=== PATIENT | female | born 1995 | race Caucasian/White ===

== ENCOUNTER 2018-09-05 15:20 | Emergency (ER) | payer MEDICARE, MEDICAID ==
[2018-09-05] MEDS ORDERED: KETOROLAC TROMETHAMINE INJ/PF 30 MG/1 ML SDV IV ONE (16:00)
[2018-09-05] MEDS ORDERED: NORMAL SALINE 1000 ML 1,000 ML IV ONE ×2 (16:00→18:25)
[2018-09-05] MEDS ORDERED: ONDANSETRON HCL INJ/PF 4 MG/2 ML SDV IV ONE (16:00)
--- NOTE | 2018-09-05 16:00 | ER Document Report ---
ED Medical Screen (RME) - General Chief Complaint: Abdominal Pain Stated Complaint: ABDOMINAL PAIN Time Seen by Provider: 09/05/18 15:55 TRAVEL OUTSIDE OF THE [place] IN LAST 30 DAYS: No - HPI Notes: 09/05/18 15:59 Patient is a 23-year-old female that presents to the emergency department for chief complaint of left flank and lower abdominal pain. Patient started having left flank pain at 3 AM. Around 9 AM the pain transition to bilateral lower back and bilateral lower frontal abdominal pain. She reports associated nausea and vomiting. She took a dose of Tylenol and ibuprofen at 8 AM with some improvement of symptoms. She has a history of kidney stones and states this feels similar but the pain is more severe. She does have a urologist but does not remember their name.. ROS: GENERAL: Denies fever of chills CV: Denies chest pain PHYSICAL EXAMINATION: GENERAL: Well-appearing, well-nourished and in no acute distress. HEAD: Atraumatic, normocephalic. EYES: Pupils equal round extraocular movements intact, conjunctiva are normal. ENT: Nares patent NECK: Normal range of motion LUNGS: No respiratory distress Musculoskeletal: Normal range of motion NEUROLOGICAL: Normal speech, normal gait. PSYCH: Normal mood, normal affect. MDM: Patient seen and examined for rapid initial assessment. Vital signs reviewed. A comprehensive ED assessment and evaluation of the patient, analysis of test results and completion of the medical decision making process will be conducted by additional ED providers. - Related Data Allergies/Adverse Reactions: No Known Allergies Allergy (Unverified 09/05/18 15:44) Past Medical History - Social History Frequency of alcohol use: None Drug Abuse: None Pulmonary Medical History: Reports: Hx Asthma Renal/ Medical History: Reports: Hx Kidney Stones. Denies: Hx Peritoneal Dialysis Psychiatric Medical History: Reports: Hx Bipolar Disorder - depression, Hx Depression, Hx Schizophrenia Physical Exam - Vital signs Vitals: Temp Pulse Resp BP Pulse Ox 99.7 F 111 H 16 132/90 H 98 09/05/18 15:30 09/05/18 15:30 09/05/18 15:30 09/05/18 15:30 09/05/18 15:30 Course - Vital Signs Vital signs: Temp Pulse Resp BP Pulse Ox 99.7 F 111 H 16 132/90 H 98 09/05/18 15:30 09/05/18 15:30 09/05/18 15:30 09/05/18 15:30 09/05/18 15:30
[2018-09-05 16:38] LABS: HEMATOCRIT 42.4 % (36.0-47.0); HEMOGLOBIN 14.5 g/dL (12.0-15.5); MEAN CORPUSCULAR HEMOGLOBIN 26.5 pg (27.0-33.4); MEAN CORPUSCULAR HGB CONC 34.1 g/dL (32.0-36.0); MEAN CORPUSCULAR VOLUME 78 fl (80-97); PLATELET COUNT 327 10^3/uL (150-450); RED BLOOD COUNT 5.47 10^6/uL (3.72-5.28); RED CELL DISTRIBUTION WIDTH 14.9 % (11.5-14.0); WHITE BLOOD COUNT 18.3 10^3/uL (4.0-10.5)
[2018-09-05 16:41] LABS: APPEARANCE,URINE CLOUDY; BILIRUBIN,URINE NEGATIVE (NEGATIVE); COLOR,URINE YELLOW; GLUCOSE, URINE NEGATIVE (NEGATIVE); KETONES,URINE NEGATIVE (NEGATIVE); LEUKOCYTE ESTERASE,URINE LARGE (NEGATIVE); NITRITE,URINE NEGATIVE (NEGATIVE); PROTEIN,URINE 30 mg/dL (NEGATIVE); URINE SPECIFIC GRAVITY 1.028; UROBILINOGEN,URINE NEGATIVE mg/dL (<2.0)
[2018-09-05 16:53] LABS: ANION GAP 15 (5-19); BLOOD UREA NITROGEN 12 mg/dL (7-20); CALCIUM 9.6 mg/dL (8.4-10.2); CARBON DIOXIDE 23 mmol/L (22-30); CHLORIDE 104 mmol/L (98-107); GLUCOSE 122 mg/dL (75-110); POTASSIUM 3.9 mmol/L (3.6-5.0); SODIUM 141.7 mmol/L (137-145)
[2018-09-05 17:10] LABS: ABSOLUTE LYMPHOCYTES# (MANUAL) 0.5 10^3/uL (0.5-4.7); ABSOLUTE MONOCYTES # (MANUAL) 0.4 10^3/uL (0.1-1.4); ABSOLUTE NEUTROPHILS# (MANUAL) 17.4 10^3/uL (1.7-8.2); BASOPHILS % (MANUAL) 0 % (0-2); EOSINOPHILS % (MANUAL) 0 % (0-6); LYMPHOCYTES % (MANUAL) 3 % (13-45); MONOCYTES % (MANUAL) 2 % (3-13); PLATELET COMMENT ADEQUATE; RBC MORPHOLOGY COMMENT NORMO-CYTIC/CHROMIC; SEGMENTED NEUTROPHILS % (MAN) 95 % (42-78); TOTAL CELLS COUNTED 100
[2018-09-05] MEDS ORDERED: CEFTRIAXONE INJ 1000 MG VIAL IV ONE (17:33)
--- NOTE | 2018-09-05 17:58 | RADIOLOGY REPORT (SQ) ---
EXAM DESCRIPTION: CT ABD/PELVIS NO ORAL OR IV COMPLETED DATE/TIME: 09/05/2018 5:27 pm REASON FOR STUDY: left flank pain COMPARISON: None. TECHNIQUE: CT scan of the abdomen and pelvis performed without intravenous or oral contrast. Images reviewed with lung, soft tissue, and bone windows. Reconstructed coronal and sagittal MPR images revi ewed. All images stored on PACS. All CT scanners at this facility use dose modulation, iterative reconstruction, and/or weight based d osing when appropriate to reduce radiation dose to as low as reasonably achievable (ALARA). [facility]: Dose Right [facility]: CareDose [facility]: Dose Right [facility]: Teradose 4D [facility]: Smart Technologies RADIATION DOSE: CT Rad equipment meets quality standard of care and radiation dose reduction techniq ues were employed. CTDIvol: 19.0 mGy. DLP: 1108 mGy-cm.mGy. LIMITATIONS: None. FINDINGS: LOWER CHEST: Cannot exclude a 5 cm fat density lesion in the right breast on image 1. NON-CONTRASTED LIVER, SPLEEN, ADRENALS: Evaluation limited by lack of IV contrast. No identified sign ificant masses. PANCREAS: No masses. No peripancreatic inflammatory changes. GALLBLADDER: No identified stones by CT criteria. No inflammatory changes to suggest cholecystitis. RIGHT KIDNEY AND URETER: No suspicious masses. Assessment limited by lack of IV contrast. Small non obstructing intrarenal calculus. No hydronephrosis or hydroureter. LEFT KIDNEY AND URETER: No suspicious masses. Assessment limited by lack of IV contrast. 4 cm calcu nitin at the UPJ. Mild hydronephrosis. AORTA AND RETROPERITONEUM: No aneurysm. No retroperitoneal masses or adenopathy. BOWEL AND PERITONEAL CAVITY: No obvious masses or inflammatory changes. No free fluid. APPENDIX: Normal. PELVIS, BLADDER, AND ABDOMINAL WALL:No abnormal masses. No free fluid. Bladder normal. BONES: No significant findings. OTHER: No other significant finding. IMPRESSION: 1. 4 mm stone at the left UPJ with mild hydronephrosis. 2. Cannot exclude 5 cm hamartoma or lipoma in the right breast. COMMENT: Quality ID # [id number]: Final reports with documentation of one or more dose reduction techniques (e.g., Automated exposure control, adjustment of the mA and/or kV according to patient size, use of iterative reconstruction technique) TECHNICAL DOCUMENTATION: JOB ID: [id number] [employer]- All Rights Reserved Reading location - IP/workstation name: [email or web address]
[2018-09-05] MEDS ORDERED: MORPHINE SULFATE 10 MG/ML INJ IV ONE ×2 (18:01→22:15)
[2018-09-05] MEDS ORDERED: TAMSULOSIN HCL 0.4 MG CAP.SR.24H PO ONE (18:08)
--- NOTE | 2018-09-05 18:10 | ER Document Report ---
ED General - General Chief Complaint: Abdominal Pain Stated Complaint: ABDOMINAL PAIN Time Seen by Provider: 09/05/18 15:55 Mode of Arrival: Ambulatory Information source: Patient, Relative, [facility] Records Notes: 23-year-old female with asthma, schizophrenia, bipolar disorder, previous kidney stones presents with complaint of left-sided flank pain that started 15 hours prior to arrival. Patient describes the pain as sharp, constant with radiation to her left lower quadrant. She has had associated nausea, vomiting. Patient has also had subjective fever with chills and sweats. Patient's last stone was approximately 2 years ago. She is not currently under urology care. TRAVEL OUTSIDE OF THE [place]. IN LAST 30 DAYS: No - HPI Onset: This morning Onset/Duration: Sudden, Constant Quality of pain: Stabbing Severity: Moderate Associated symptoms: Chills, Nausea, Vomiting Exacerbated by: Movement, Walking Relieved by: Denies Similar symptoms previously: Yes Recently seen / treated by doctor: No - Related Data Allergies/Adverse Reactions: No Known Allergies Allergy (Unverified 09/05/18 15:44) Past Medical History - General Information source: Patient, [facility] Records - Social History Smoking Status: Former Smoker Frequency of alcohol use: None Drug Abuse: None Lives with: Family Family History: Reviewed & Not Pertinent Patient has suicidal ideation: No Patient has homicidal ideation: No Pulmonary Medical History: Reports: Hx Asthma Renal/ Medical History: Reports: Hx Kidney Stones. Denies: Hx Peritoneal Dialysis Psychiatric Medical History: Reports: Hx Bipolar Disorder - depression, Hx Depression, Hx Schizophrenia Review of Systems - Review of Systems Notes: REVIEW OF SYSTEMS: CONSTITUTIONAL : Denies fever, Denies recent illness. Denies weight loss, recent hospitalizations. EENT: Denies visual changes, eye pain. Denies sore throat, oral lesions, difficulty swallowing. CARDIOVASCULAR: Denies chest pain. Denies palpitations. Denies lower extremity edema. RESPIRATORY: Denies cough. Denies shortness of breath, wheezing. GASTROINTESTINAL: Denies abdominal pain or distention. Denies diarrhea. Denies blood in vomitus, stools, or per rectum. Denies black, tarry stools. Denies constipation. GENITOURINARY: Denies difficulty urinating, painful urination, frequency, blood in urine, or vaginal discharge. MUSCULOSKELETAL: Denies neck pain or stiffness. Denies joint pain or swelling. SKIN: Denies rash, lesions or sores. HEMATOLOGIC : Denies easy bruising or bleeding. LYMPHATIC: Denies swollen glands. NEUROLOGICAL: Denies confusion or altered mental status. Denies loss of consciousness. Denies dizziness or lightheadedness. Denies headache. Denies weakness or paralysis. Denies problems difficulty with ambulation, slurred speech. Denies sensory loss, numbness, or tingling. Denies seizures. PSYCHIATRIC: Denies anxiety or stress. Denies depression, suicidal ideation, or homicidal ideation. Denies visual or auditory hallucinations. Physical Exam - Vital signs Vitals: Temp Pulse Resp BP Pulse Ox 99.7 F 111 H 16 132/90 H 98 09/05/18 15:30 09/05/18 15:30 09/05/18 15:30 09/05/18 15:30 09/05/18 15:30 Interpretation: Hypertensive, Tachycardic - Notes Notes: PHYSICAL EXAMINATION: GENERAL: Well-appearing, well-nourished and in no acute distress. HEAD: Atraumatic, normocephalic. EYES: Pupils equal round and reactive to light, extraocular movements intact, conjunctiva are normal. ENT: Nares patent, oropharynx clear without exudates. Moist mucous membranes. NECK: Normal range of motion, supple without lymphadenopathy LUNGS: Breath sounds clear to auscultation bilaterally and equal. No wheezes rales or rhonchi. HEART: Tachycardic, regular rhythm no murmurs ABDOMEN: Soft, nontender, nondistended abdomen. No guarding, no rebound. No masses appreciated. Left CVA tenderness Female : deferred Musculoskeletal: Normal range of motion, no pitting or edema. No cyanosis. NEUROLOGICAL: Cranial nerves grossly intact. Normal speech, normal gait. Normal sensory, motor exams PSYCH: Normal mood, normal affect. SKIN: Warm, Dry, normal turgor, no rashes or lesions noted. Course - Re-evaluation Re-evalutation: Laboratory 09/05/18 09/05/18 09/05/18 16:13 16:13 16:13 WBC 18.3 H RBC 5.47 H Hgb 14.5 Hct 42.4 MCV 78 L MCH 26.5 L MCHC 34.1 RDW 14.9 H Plt Count 327 Total Counted 100 Seg Neutrophils % Not Reportable Seg Neuts % (Manual) 95 H Lymphocytes % Not Reportable Lymphocytes % (Manual) 3 L Monocytes % Not Reportable Monocytes % (Manual) 2 L Eosinophils % Not Reportable Eosinophils % (Manual) 0 Basophils % Not Reportable Basophils % (Manual) 0 Absolute Neutrophils Not Reportable Abs Neuts (Manual) 17.4 H Absolute Lymphocytes Not Reportable Abs Lymphs (Manual) 0.5 Absolute Monocytes Not Reportable Abs Monocytes (Manual) 0.4 Absolute Eosinophils Not Reportable Absolute Eos (Manual) 0.0 Absolute Basophils Not Reportable Abs Basophils (Manual) 0.0 Platelet Comment ADEQUATE RBC Morph Comment NORMO-CYTIC/CHROMIC Sodium 141.7 Potassium 3.9 Chloride 104 Carbon Dioxide 23 Anion Gap 15 BUN 12 Creatinine 1.07 Est GFR ( Amer) > 60 Est GFR (Non-Af Amer) > 60 Glucose 122 H Calcium 9.6 Urine Color YELLOW Urine Appearance CLOUDY Urine pH 5.0 Ur Specific [place] 1.028 Urine Protein 30 H Urine Glucose (UA) NEGATIVE Urine Ketones NEGATIVE Urine Blood NEGATIVE Urine Nitrite NEGATIVE Urine Bilirubin NEGATIVE Urine Urobilinogen NEGATIVE Ur Leukocyte Esterase LARGE H Urine WBC (Auto) 82 Urine RBC (Auto) 9 Urine Bacteria (Auto) TRACE Squamous Epi Cells Auto 11 Urine Mucus (Auto) FEW Urine Ascorbic Acid NEGATIVE Urine HCG, Qual NEGATIVE Abdomen/Pelvis CT 09/05/18 15:59 IMPRESSION: 1. 4 mm stone at the left UPJ with mild hydronephrosis. 2. Cannot exclude 5 cm hamartoma or lipoma in the right breast. 09/05/18 18:[address] Mendoza's ETHAN Denis who has accepted the patient for transfer to [facility] for an infected stone. 09/05/18 18:49 23-year-old female presents with complaint of left flank pain for approximately 15 hours with associated nausea, vomiting. Upon arrival patient is tachycardic but afebrile. She does not appear toxic or dehydrated but she is in significant pain with palpation to the abdomen left flank. CBC shows a leukocytosis of 18. Urinalysis shows large leuk esterase and 82 WBCs. CMP without significant electrolyte abnormalities. CT was obtained and showed a 4 mm stone at the left UPJ with mild hydronephrosis. Because of the patient's vomiting, leukocytosis, urinary tract infection she will be transferred to [facility] where urology is available. Both patient and mother are agreeable with transfer. Both were told that estimated time of transfer will be approximately 9 PM but that we cannot be sure. As needed medications for pain and nausea have been ordered. - Vital Signs Vital signs: Temp Pulse Resp BP Pulse Ox 99.7 F 111 H 16 132/90 H 98 09/05/18 15:30 09/05/18 15:30 09/05/18 15:30 09/05/18 15:30 09/05/18 15:30 - Laboratory Result Diagrams: 09/05/18 16:13 09/05/18 16:13 Laboratory results interpreted by me: 09/05/18 09/05/18 09/05/18 16:13 16:13 16:13 WBC 18.3 H RBC 5.47 H MCV 78 L MCH 26.5 L RDW 14.9 H Seg Neuts % (Manual) 95 H Lymphocytes % (Manual) 3 L Monocytes % (Manual) 2 L Abs Neuts (Manual) 17.4 H Glucose 122 H Urine Protein 30 H Ur Leukocyte Esterase LARGE H - Diagnostic Test Radiology reviewed: Image reviewed, Reports reviewed Discharge - Discharge Clinical Impression: Elevated blood pressure reading, Tachycardia Urolithiasis Qualifiers: Urinary calculus location: upper urinary tract Qualified Code(s): N20.9 - Urinary calculus, unspecified UTI (urinary tract infection) Qualifiers: Urinary tract infection type: site unspecified Hematuria presence: without hematuria Qualified Code(s): N39.0 - Urinary tract infection, site not specified Hydronephrosis Qualifiers: Hydronephrosis type: with renal calculous obstruction Qualified Code(s): N13.2 - Hydronephrosis with renal and ureteral calculous obstruction Leukocytosis Qualifiers: Leukocytosis type: unspecified Qualified Code(s): D72.829 - Elevated white blood cell count, unspecified Nausea & vomiting Qualifiers: Vomiting type: unspecified Vomiting Intractability: non-intractable Qualified Code(s): R11.2 - Nausea with vomiting, unspecified Condition: Good Disposition: [facility] Instructions: Urinary Tract Infection ([facility])
[2018-09-05] MEDS ORDERED: MORPHINE SULFATE 10 MG/ML INJ IV PRN (18:25)
[2018-09-05] MEDS: ONDANSETRON HCL INJ/PF 4 MG/2 ML SDV IV PRN ×2 (18:37→22:22)
[2018-09-05] MEDS ORDERED: ONDANSETRON 4 MG TAB.RAPDIS PO ONE (20:02)
--- NOTE | 2018-09-05 22:36 | ER Document Report ---
Doctor's Note Notes: 09/05/18 22:16 Patient signed out to me by Dr. Figueroa. EMS is ready for transport and patient is rechecked. States she is feeling better and only complains of back pain. Administered 2 mg of Morphine IV. Patient is stable for transport.
[2018-09-05 22:40] VITALS: BP 112/67
== END 2018-09-05 22:40 | disposition short-term general hospital (02) ==
LOC: ER 15:20
DX: N13.6 Pyonephrosis (principal); J45.909 Unspecified asthma, uncomplicated; R11.2 Nausea with vomiting, unspecified; R68.83 Chills (without fever); R00.0 Tachycardia, unspecified; D72.829 Elevated white blood cell count, unspecified; Z87.891 Personal history of nicotine dependence
CPT/HCPCS: 96376; 99284; 96361; 96375; 96365; 36415; 87086; 85025; 81025; 87088; 80048; 81001; 87186; 74176; J1885; J2270; A9270; J0696; J2405; J7030

== ENCOUNTER 2020-04-19 13:15 | Emergency (ER) | payer MEDICARE, MEDICAID ==
--- NOTE | 2020-04-19 15:11 | ER Document Report ---
ED General - General Chief Complaint: Signs of Kruger Stated Complaint: SHORTNESS OF BREATH Time Seen by Provider: 04/19/20 15:07 Notes: 24-year-old woman presents to the emergency department with a complaint of cough, congestion, body aches and pains. States that she feels have coronavirus. She complains of episodic headache and also weakness. She denies a history of known exposure to COVID-19. TRAVEL OUTSIDE OF THE [place] IN LAST 30 DAYS: No - Related Data Allergies/Adverse Reactions: No Known Allergies Allergy (Verified 05/20/19 13:36) Past Medical History - Social History Smoking Status: Current Every Day Smoker Chew tobacco use (# tins/day): No Frequency of alcohol use: Social Drug Abuse: None Family History: Reviewed & Not Pertinent Patient has homicidal ideation: No Pulmonary Medical History: Reports: Hx Asthma Renal/ Medical History: Reports: Hx Kidney Stones. Denies: Hx Peritoneal Dialysis Psychiatric Medical History: Reports: Hx Bipolar Disorder - depression, Hx Depression, Hx Schizophrenia Review of Systems - Review of Systems Notes: Constitutional: +fever. HENT: Negative for sore throat. Eyes: Negative for visual changes. Cardiovascular: Negative for chest pain. Respiratory:+ Cough Gastrointestinal: Negative for abdominal pain, vomiting or diarrhea. Genitourinary: Negative for dysuria. Musculoskeletal: + Myalgia Skin: Negative for rash. Neurological: Negative for headaches, weakness or numbness. 10 point ROS negative except as marked above and in HPI. Physical Exam - Vital signs Vitals: Temp Pulse Resp BP Pulse Ox 99.2 F 92 21 H 149/88 H 97 04/19/20 13:54 04/19/20 13:54 04/19/20 13:54 04/19/20 13:54 04/19/20 13:54 - Notes Notes: PHYSICAL EXAMINATION: Physical Exam: General: Well-nourished well-developed 24-year-old female in no acute distress HEENT: NC/AT, pupils equal round and reactive to light, MM moist,nares clear, oropharynx nasal congestion, airway patent Neck: supple, no adenopathy, no masses. Good range of motion Lungs: Bilateral clear lungs with good air movement CVS: Normal S1, S2, no murmur gallop or rub Abdomen: Soft, active, nontender, no masses, no hepatosplenomegaly Ext: No edema, clubbing or cyanosis. Neuro: Alert and responsive, moving all 4 extremities on command, cranial nerves intact, no focal findings Skin: Intact no open lesions, no rash PSYCH: Normal mood, normal affect. Course - Re-evaluation Re-evalutation: 04/19/20 19:32 Patient presents with low-grade temperature, cough and body aches. Chest x-ray and labs are noted to be negative. Given her presentation, coronavirus screening test is being performed. I have instructed the patient that she will need to self isolate until she received a report of the test results. The patient acknowledges that she has been tested for COVID-19, and will self isolate at home until she receives results. She is instructed to avoid anti- inflammatory medications. May use Tylenol for fever, aches and pains. She is also instructed to return to the hospital if her symptoms are worsening or development of shortness of breath. - Vital Signs Vital signs: Temp Pulse Resp BP Pulse Ox 98.7 F 94 16 143/99 H 96 04/19/20 17:54 04/19/20 17:54 04/19/20 17:54 04/19/20 17:54 04/19/20 17:54 - Laboratory Result Diagrams: 04/19/20 15:56 04/19/20 15:56 Laboratory results interpreted by me: 04/19/20 04/19/20 15:56 15:56 RBC 5.34 H RDW 15.3 H Eos % (Auto) 14.0 H Absolute Eos (auto) 1.0 H Urine Protein 30 H I have reviewed laboratory data and used this information for the treatment decisions regarding the patient. - Diagnostic Test Radiology reviewed: Image reviewed, Reports reviewed Radiology results interpreted by me: 04/19/20 19:32 Chest x-ray: No acute cardiopulmonary findings, no infiltrates. Discharge - Discharge Clinical Impression: Suspected 2019 novel coronavirus infection Condition: Good Disposition: HOME, SELF-CARE Additional Instructions: You were seen with upper respiratory symptoms.Testing chest x-ray is clear. Given the pandemic and coronavirus concerns, your were made a person of interest and a swab was collected and will be sent for COVID-19 evaluation. You will need to self quarantine until you get the results. Avoid anti-inflammatory medications, you may use Tylenol for fever, aches and pains. Please return to the hospital if her symptoms are worsening or development of shortness of breath. Please begin vitamin D 5000 IU daily, zinc 50 mg daily, Robitussin-DM for cough. HOME CARE INSTRUCTIONS & INFORMATION: Thank you for choosing us for your medical needs. We hope you're satisfied with the care you received. After you leave, you must properly care for your problem and, at the same time, observe its progress. Any condition can change. Some illnesses can change rapidly over hours or days. If your condition worsens, return to the Emergency Department or see your physician promptly. ABOUT YOUR X-RAYS AND EKG'S: If you had an EKG or X-rays taken, they have been read by the Emergency Physician. The X-rays and EKG's will also be read by a Radiologist or [employer] De[employer] within 24 hours. If discrepancies are noted, you will be notified by telephone. Please be certain the ED has a correct telephone number & address where you can be reached. Also, realize that some fractures or abnormalities do not show up on initial X-rays. If your symptoms continue, see your physician. ABOUT YOUR LABORATORY TEST: If you had laboratory tests, the results have been reviewed by the Emergency Physician. Some test results (for example cultures) may not be available for several days. You will be contacted if any test result shows you need additional treatment. Please be certain the ED has a correct telephone number and address where you can be reached. ABOUT YOUR MEDICATIONS: You will receive instructions on how to take your medicine on the prescription label you receive. Additional information may be provided by the Pharmacy. If you have questions afterwards, call the ED for clarification or further instructions. Some prescribed medications may cause drowsiness. Do not perform tasks such as driving a car or operating machinery without consulting your Pharmacist. If you feel you need a refill of pain medication, your condition will need re-evaluation. Please do not call for a refill of any medication. ABOUT YOUR SIGNATURE: Signature of this document acknowledges to followin. Understanding that you received emergency treatment and that you may be released before al medical problems are known or treated. Please be certain the ED has a correct phone number & address where you can be reached. 2. Acknowledgement that you will arrange for follow-up care as recommended. 3. Authorization for the Emergency Physician to provide information to your f ollow-up Physician in order to maximize your care. AT ANY TIME, IF YOUR SYMPTOMS CHANGE SIGNIFICANTLY OR WORSEN OR YOU DEVELOP NEW SYMPTOMS, RETURN TO THE EMERGENCY DEPARTMENT IMMEDIATELY FOR RE-EVALUATION. OUR GOAL IS TO PROVIDE EXCELLENT MEDICAL CARE! WE HOPE THAT WE HAVE MET YOUR EXPECTATIONS DURING YOUR EMERGENCY DEPARTMENT VISIT AND THAT YOU FEEL YOU HAVE RECEIVED EXCELLENT CARE!
--- NOTE | 2020-04-19 15:26 | RADIOLOGY REPORT (SQ) ---
EXAM DESCRIPTION: CHEST SINGLE VIEW IMAGES COMPLETED DATE/TIME: 04/19/2020 3:17 pm REASON FOR STUDY: shortness of breath COMPARISON: None. EXAM PARAMETERS: NUMBER OF VIEWS: One view. TECHNIQUE: Single frontal radiographic view of the chest acquired. RADIATION DOSE: NA LIMITATIONS: None. FINDINGS: LUNGS AND PLEURA: No opacities, masses or pneumothorax. No pleural effusion. MEDIASTINUM AND HILAR STRUCTURES: No masses. Contour normal. HEART AND VASCULAR STRUCTURES: Heart normal in size. Normal vasculature. BONES: No acute findings. HARDWARE: None in the chest. OTHER: No other significant finding. IMPRESSION: NO ACUTE RADIOGRAPHIC FINDING IN THE CHEST. TECHNICAL DOCUMENTATION: JOB ID: [id number] 2010 [employer]- All Rights Reserved Reading location - IP/workstation name: [email or web address]
[2020-04-19 16:17] LABS: ABSOLUTE BASOPHILS # (AUTO) 0.1 10^3/uL (0.0-0.2); ABSOLUTE LYMPHOCYTES (AUTO) 2.1 10^3/uL (0.5-4.7); ABSOLUTE MONOCYTES (AUTO) 0.6 10^3/uL (0.1-1.4); ABSOLUTE NEUT (AUTO) 3.6 10^3/uL (1.7-8.2); BASOPHILS % (AUTO) 1.5 % (0-2); HEMATOCRIT 44.7 % (36.0-47.0); HEMOGLOBIN 14.8 g/dL (12.0-15.5); LYMPHOCYTES % (AUTO) 28.6 % (13-45); MEAN CORPUSCULAR HEMOGLOBIN 27.8 pg (27.0-33.4); MEAN CORPUSCULAR HGB CONC 33.1 g/dL (32.0-36.0); MEAN CORPUSCULAR VOLUME 84 fl (80-97); MONOCYTES % (AUTO) 7.7 % (3-13); PLATELET COUNT 250 10^3/uL (150-450); RED BLOOD COUNT 5.34 10^6/uL (3.72-5.28); RED CELL DISTRIBUTION WIDTH 15.3 % (11.5-14.0); SEGMENTED NEUTROPHILS % (AUTO) 48.2 % (42-78); TOTAL CELLS COUNTED % (AUTO) 100 %; WHITE BLOOD COUNT 7.4 10^3/uL (4.0-10.5)
[2020-04-19 16:32] LABS: APPEARANCE,URINE SLIGHTLY-CLOUDY; BILIRUBIN,URINE NEGATIVE (NEGATIVE); CALCIUM OXALATE CRYSTALS,URINE FEW /HPF; COLOR,URINE YELLOW; GLUCOSE, URINE NEGATIVE (NEGATIVE); KETONES,URINE NEGATIVE (NEGATIVE); LEUKOCYTE ESTERASE,URINE NEGATIVE (NEGATIVE); NITRITE,URINE NEGATIVE (NEGATIVE); PROTEIN,URINE 30 mg/dL (NEGATIVE); URINE SPECIFIC GRAVITY 1.023; UROBILINOGEN,URINE NEGATIVE mg/dL (<2.0)
[2020-04-19 16:38] LABS: ALBUMIN 4.7 g/dL (3.5-5.0); ALKALINE PHOSPHATASE 90 U/L (38-126); ANION GAP 7 (5-19); ASPARTATE AMINO TRANSFERASE 23 U/L (14-36); BILIRUBIN,TOTAL 0.4 mg/dL (0.2-1.3); BLOOD UREA NITROGEN 13 mg/dL (7-20); CALCIUM 9.7 mg/dL (8.4-10.2); CARBON DIOXIDE 27 mmol/L (22-30); CHLORIDE 105 mmol/L (98-107); GLUCOSE 90 mg/dL (75-110); POTASSIUM 4.5 mmol/L (3.6-5.0); TOTAL PROTEIN 7.7 g/dL (6.3-8.2)
[2020-04-19 18:13] VITALS: BP 143/99
== END 2020-04-19 17:58 | disposition home or self-care (01) ==
LOC: ER 13:15
DX: R05 Cough (principal); R51 Headache; R53.1 Weakness; J45.909 Unspecified asthma, uncomplicated; F17.200 Nicotine dependence, unspecified, uncomplicated; Z20.828 Contact with and (suspected) exposure to other viral communicable diseases
CPT/HCPCS: 99283; 36415; 85025; 80053; 81001; 71045; U0003; C9803; 87635

== ENCOUNTER 2020-11-05 10:06 | Emergency (ER) | payer MEDICARE, MEDICAID ==
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
[2020-11-05] MEDS ORDERED: ONDANSETRON 4 MG TAB.RAPDIS PO ONE (11:32)
[2020-11-05] MEDS ORDERED: OXYCODONE-ACETAMINOPHEN 5-325 MG TABLET PO ONE (11:32)
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
[2020-11-05 13:37] VITALS: BP 152/99
== END 2020-11-05 13:40 | disposition home or self-care (01) ==
LOC: ER 10:06
DX: S87.82XA Crushing injury of left lower leg, initial encounter (principal); S93.401A Sprain of unspecified ligament of right ankle, initial encounter; M25.571 Pain in right ankle and joints of right foot; M79.605 Pain in left leg; M79.89 Other specified soft tissue disorders; V09.9XXA Pedestrian injured in unspecified transport accident, initial encounter; F17.210 Nicotine dependence, cigarettes, uncomplicated; Z79.899 Other long term (current) drug therapy; J45.909 Unspecified asthma, uncomplicated
CPT/HCPCS: 99284; 73610; 73590; A9270 ×2; S0119